=== PATIENT | female | born 1985 | race Caucasian/White ===

== ENCOUNTER → 2022-07-30 | Outpatient (CLI) | payer BC ==
--- NOTE | 2022-07-30 10:34 | MM ---
Reason for Exam: Screening (asymptomatic). Baseline mammogram. Patient History: Menarche at age 12. First Full-Term at age 23. Hysterectomy at age 29. Currently using Estrogen, starting at age 36. Paternal aunt had breast cancer at or over age 50. Paternal grandmother had breast cancer at or over age 50. Maternal grandmother had breast cancer at or over age 50. Mother had breast cancer, age 46. Risk Values: Macie 5 year model risk: 0.7%. NCI Lifetime model risk: 18.6%. Prior Study Comparison: Patient's first Mammogram. Tissue Density: The breast tissue is heterogeneously dense. This may lower the sensitivity of mammography. Findings: Analyzed By CAD. Benign-appearing bilateral axillary lymph nodes. There is oval circumscribed 3.2 cm mass towards the right axilla on MLO view to posterior in location to be seen on cc view. There is irregular focal asymmetry in the middle to posterior depth central aspect left breast on CC view. Overall Assessment: Incomplete: need additional imaging evaluation, BI-RAD 0 Management: Special View Mammogram of the left breast. Diagnostic Breast Ultrasound of the right breast. Targeted ultrasound right breast. Additional mammogram views left breast. Electronically signed and approved by: Rohit Wang M.D.
== END | disposition home or self-care (01) ==
LOC: RADMAMWWP 07:49
PROVIDERS: ATTEND Obstetrics & Gynecology
DX: Z12.31 Encounter for screening mammogram for malignant neoplasm of breast (principal); Z80.3 Family history of malignant neoplasm of breast
CPT/HCPCS: 77067

== ENCOUNTER → 2022-08-02 | Outpatient (CLI) | payer BC ==
--- NOTE | 2022-08-02 07:39 | MM ---
Reason for Exam: Additional evaluation requested from abnormal screening. Last screening mammogram was performed less than 1 month ago. Patient History: Menarche at age 12. First Full-Term at age 23. Hysterectomy at age 29. Currently using Estrogen, starting at age 36. Paternal aunt had breast cancer at or over age 50. Paternal grandmother had breast cancer at or over age 50. Maternal grandmother had breast cancer at or over age 50. Mother had breast cancer, age 46. Risk Values: Macie 5 year model risk: 0.7%. NCI Lifetime model risk: 18.6%. Prior Study Comparison: 07/30/2022 Bilateral MG screening mammo w CAD, [facility]. Tissue Density: Left: The breast tissue is heterogeneously dense. This may lower the sensitivity of mammography. Findings: Analyzed By CAD. Within the left breast at posterior depth 6.5 cm from nipple is a 13 mm asymmetry seen on CC view only slice 25 of 81 on 3-D imaging. Overall Assessment: Incomplete: need additional imaging evaluation, BI-RAD 0 Management: Diagnostic Breast Ultrasound of the left breast. A clinical breast exam by your physician is recommended on an annual basis and results should be correlated with mammographic findings. This exam should not preclude additional follow-up of suspicious palpable abnormalities. Results were given to the patient verbally at the time of exam. Electronically signed and approved by: Jules Robertson DO
--- NOTE | 2022-08-02 08:29 | USB ---
Reason for Exam: Additional evaluation requested from abnormal screening. Patient History: Menarche at age 12. First Full-Term at age 23. Hysterectomy at age 29. Currently using Estrogen, starting at age 36. Paternal aunt had breast cancer at or over age 50. Paternal grandmother had breast cancer at or over age 50. Maternal grandmother had breast cancer at or over age 50. Mother had breast cancer, age 46. Risk Values: Macie 5 year model risk: 0.7%. NCI Lifetime model risk: 18.6%. Prior Study Comparison: 07/30/2022 Bilateral MG screening mammo w CAD, [facility]. Findings: The upper outer quadrant of the right breast, the medial section of the breast of the left breast, the axilla of both breasts and the retroareolar of both breasts were scanned. Evaluation of the breasts including the Right upper outer, axilla and retroareolar and in the left breast medial, retroareolar and axilla. Right breast, * 10:00 5 cm from nipple anechoic cyst measuring 3.1 x 1.3 x 3.1 cm with posterior acoustic enhancement. * Additional anechoic cysts are identified at 9:00 3 cm from nipple, 10:00 2 cm from nipple, 11:00 2 cm from nipple, 12:00 5 cm from nipple. Left breast: * Ill-defined irregular shaped, hypoechoic tissue with irregular borders at 10:00 3 cm from nipple. This area measures roughly 10 x 7 mm in single plane but has a somewhat elongated shape on live scanning. * At 9:00 7 cm from nipple is anechoic cyst measuring up to 7 mm to correlate with finding on mammography. Overall Assessment: Probably benign, BI-RAD 3 Management: Diagnostic Breast Ultrasound of the left breast in 3 months. Somewhat ill-defined tissue is seen in the left breast at 10:00 3 cm from nipple which does not definitively have a correlate on mammography. This may represent fibroglandular tissue. Consider tissue sampling over a three-month ultrasound left breast follow-up as clinically warranted/patient warranted. A clinical breast exam by your physician is recommended on an annual basis and results should be correlated with mammographic findings. This exam should not preclude additional follow-up of suspicious palpable abnormalities. Results were given to the patient verbally at the time of exam. Electronically signed and approved by: Jules Robertson DO
== END | disposition home or self-care (01) ==
LOC: RADMAMWWP 06:59
PROVIDERS: ATTEND Obstetrics & Gynecology
DX: R92.8 Other abnormal and inconclusive findings on diagnostic imaging of breast (principal); Z80.3 Family history of malignant neoplasm of breast
CPT/HCPCS: 77061; 77065

== ENCOUNTER → 2022-11-03 | Outpatient (CLI) | payer BC ==
--- NOTE | 2022-11-08 10:57 | BMR ---
EXAMINATION TYPE: MR breast BILAT wo/w con DATE OF EXAM: 11/03/2022 COMPARISON: Bilateral 3-D screening mammogram July 30, 2022 BI-RADS 0. Diagnostic left breast mamm ogram August 02, 2022 BI-RADS 0. Diagnostic bilateral breast ultrasound workup August 02, 2022 BI-R ADS 3. HISTORY: High risk for breast cancer due to family history, abnormal US and MG. TECHNIQUE: A series of fat and water weighted images in the long and short axis views of both breasts are obtained in conjunction with dynamic contrast MRI with subtraction technique. The patient was i njected with 8 mL intravenous Gadavist gadolinium contrast. Three-dimensional and additional postpr ocessing imaging is created on independent workstation and reviewed during official interpretation of this study. FINDINGS: Breast parenchyma is redemonstrated heterogeneously dense. There are multiple thin-walled c ysts of varying size and shape scattered throughout the bilateral breasts with larger cysts noted thr oughout the right breast which corresponds to the recent ultrasound. Benign-appearing bilateral axill fidelia lymph nodes are present. No concerning axillary adenopathy is seen. Postcontrast images show fair ly symmetric moderate to severe background nodular enhancement making evaluation suboptimal for daniele bob. The right breast shows no areas of abnormal skin thickening. No pathologic enhancement or suspicious enhancing greater than 5 mm masses are identified. The chest wall is intact. Left breast shows no abnormal skin thickening. There is no pathologic enhancement or enhancing masses greater than 5 mm in size. There is focal susceptibility artifact in the anterior to middle depth me dial aspect thought image 668 series 701. Chest wall is intact. IMPRESSION: No convincing MRI evidence for invasive malignancy in either breast. BI-RADS 2 benign findings Recommendation: Patient currently due for repeat left breast ultrasound as is recommended on [facility] ultrasound August 02, 2022. Patient will be due for annual bilateral breast mammogram in July 2023.
== END | disposition home or self-care (01) ==
LOC: RADMRIMAIN 10:13
PROVIDERS: ATTEND Obstetrics & Gynecology
DX: Z91.89 Other specified personal risk factors, not elsewhere classified (principal); Z80.3 Family history of malignant neoplasm of breast
CPT/HCPCS: 77049; A9585

== ENCOUNTER → 2023-02-11 | Outpatient (CLI) | payer BC ==
--- NOTE | 2023-02-11 14:10 | MM ---
Reason for Exam: Clinical finding. Last screening mammogram was performed 7 month(s) ago. Indicated Problems: Lump or thickening of the right side for 9 Day(s). Patient History: Menarche at age 12. First Full-Term at age 23. Hysterectomy at age 29. Estrogen, starting at age 36 for 1 year. Paternal aunt had breast cancer at or over age 50. Paternal grandmother had breast cancer at or over age 50. Maternal grandmother had breast cancer at or over age 50. Mother had breast cancer, age 46. Risk Values: Macie 5 year model risk: 0.8%. NCI Lifetime model risk: 18.6%. Prior Study Comparison: 07/30/2022 Bilateral MG screening mammo w CAD, [facility]. 08/02/2022 Left MG 3D work up w/cad LT, [facility]. 08/02/2022 Bilateral US breast workup limited JUANITA, [facility]. 11/03/2022 Bilateral MR breast bilat wo/w con, [facility]. Tissue Density: The breast tissue is heterogeneously dense. This may lower the sensitivity of mammography. Findings: Analyzed By CAD. No definitive correlate for palpable marker. Dense fibroglandular tissue is present in this area. No new suspicious masses, calcifications or distortions.Right breast: No definitive correlate for palpable marker. Dense fibroglandular tissue is present in this area. Left breast: No new suspicious masses, calcifications or distortions. Overall Assessment: Incomplete: need additional imaging evaluation, BI-RAD 0 Management: Diagnostic Breast Ultrasound of the right breast. Results were given to the patient verbally at the time of exam. Patient should continue monthly self-breast exams. A clinical breast exam by your physician is recommended on an annual basis. This exam should not preclude additional follow-up of suspicious palpable abnormalities. Note on Macie scores and lifetime risk: 1. A Macie score greater than 3% is considered moderate risk. If this is the case, consider specialist referral to assess eligibility for a risk reducing agent. 2. If overall lifetime risk for the development of breast cancer is 20% or higher, the patient may qualify for future screening with alternating mammogram and breast MRI. Electronically signed and approved by: Jules Robertson DO
--- NOTE | 2023-02-11 15:00 | USB ---
Reason for Exam: Clinical finding. Patient History: Menarche at age 12. First Full-Term at age 23. Hysterectomy at age 29. Estrogen, starting at age 36 for 1 year. Paternal aunt had breast cancer at or over age 50. Paternal grandmother had breast cancer at or over age 50. Maternal grandmother had breast cancer at or over age 50. Mother had breast cancer, age 46. Risk Values: Macie 5 year model risk: 0.8%. NCI Lifetime model risk: 18.6%. Prior Study Comparison: 07/30/2022 Bilateral MG screening mammo w [facility], [facility]. 08/02/2022 Left MG 3D work up w/cad , [facility]. Findings: Imaged: Ultrasound imaging of: Bilateral All 4 quadrants, the retroareolar region and axilla. Bilateral simple appearing and slightly, complicated cysts. No suspicious solid masses. The palpable area within the right breast at 10:00 4 cm from nipple correlates with a anechoic cyst with posterior acoustic enhancement measuring 2.0 x 3.1 x 1.7 cm. No evidence for organizing fluid collection or mass.Imaged: Ultrasound imaging of: Bilateral All 4 quadrants, the retroareolar region and axilla. Bilateral simple appearing and slightly, complicated cysts. No suspicious solid masses. The palpable area within the right breast at 10:00 4 cm from nipple correlates with a anechoic cyst with posterior acoustic enhancement measuring 2.0 x 3.1 x 1.7 cm. LEFT breast o'clock 10:00 3 cm from the nipple probable clustered cyst appears stable. No evidence for organizing fluid collection or mass. Overall Assessment: Benign, BI-RAD 2 Management: Screening Mammogram of both breasts in 1 year. A clinical breast exam by your physician is recommended on an annual basis and results should be correlated with mammographic findings. This exam should not preclude additional follow-up of suspicious palpable abnormalities. Results were given to the patient verbally at the time of exam. Electronically signed and approved by: Jules Robertson DO
== END | disposition home or self-care (01) ==
LOC: RADMAMWWP 13:28
PROVIDERS: ATTEND Obstetrics & Gynecology
DX: N63.25 Unspecified lump in the left breast, overlapping quadrants (principal); Z80.3 Family history of malignant neoplasm of breast
CPT/HCPCS: 77062; 77066

== ENCOUNTER → 2023-12-03 | Outpatient (CLI) | payer BC ==
--- NOTE | 2023-12-03 13:50 | BMR ---
EXAM DATE: 12/03/2023 EXAM DESCRIPTION: MRI-Breast Bilat (W/WO Contrast) INDICATION: Palpable masses in both breasts. Strong family history of breast cancer. COMPARISON: Prior breast MR dated 11/03/2022. Correlation is also made with the mammogram dated 07/30/2022 and ultrasound dated 08/02/2022 CONTRAST: 6.1 cc Gadavist contrast material. TECHNIQUE: Multi sequence multiplanar MR imaging of the breasts was obtained. Subsequently, after the uneventful intravenous administration of Gadavist contrast material, 6 dynamic sequences were then obtained. Post processing was performed utilizing a [employer] CAD workstation. FINDINGS: The breasts are composed of heterogeneous fibroglandular tissue. There is moderate background parenchymal enhancement identified. No axillary or internal mammary lymphadenopathy. No focal skin thickening or nipple retraction. The bone marrow signal intensity is unremarkable. No adenopathy in the visualized mediastinum. T2 weighted images demonstrated numerous T2 bright lesions of varying sizes the dominant 1 in the right posterior breast at 3 o'clock position measuring 2.6 x 2.3 cm (401 image 29) in the left breast measuring 1.2 x 1.5 cm at 9 o'clock position posterior depth (401 image 31) likely representing benign fibrocystic changes. Post contrast images demonstrated numerous foci of varying degree of enhancements in both breasts are likely related to benign background parenchyma not significantly changed since prior examination of 11/03/2022. There is no abnormal signal or enhancement in the chest wall or subcutaneous tissue. IMPRESSION: 1. No definite MR evidence of malignancy. 2. Numerous foci of varying degree of enhancements in both breasts, likely related to probably benign background parenchyma. Continued short-term follow-up to establish stability. 3. No axillary or intramammary lymphadenopathy. Final assessment: BI-RADS category 3: Probably benign: Short-term follow-up is recommended. [facility]
== END | disposition home or self-care (01) ==
LOC: RADMRIMAIN 07:58
PROVIDERS: ATTEND Obstetrics & Gynecology
DX: N63.10 Unspecified lump in the right breast, unspecified quadrant (principal); N63.20 Unspecified lump in the left breast, unspecified quadrant; Z80.3 Family history of malignant neoplasm of breast; Z91.89 Other specified personal risk factors, not elsewhere classified
CPT/HCPCS: 77049; A9585

== ENCOUNTER → 2024-05-05 | Outpatient (CLI) | payer BC ==
--- NOTE | 2024-05-05 12:18 | CA ---
Stress Echo Report Cammie Puri Age: 38 Gender: F : 1985 Exam Date: 05/05/2024 11:19 Exam Location: [facility] Ht (in): 68 Wt (lb): 180 Ordering Physician: Mirna Mora DO Referring Physician: Mirna Mora DO Network Engineering Advisor: Saloni Mayorga RDCS Technologist Procedure CPT: Indication: R00.2 PALPITATIONS R06.02 SHORTNESS OF BREATH ICD-9 Codes: Rhythm: Patient History: DIFFICULTY IN BREATHING, PALPITATIONS, FAMILY HX OF HEART DISEASE Cardiac Medications: Medications in past 24 hours: Contrast: N/A Stress Results Protocol: Buster Total dose(mL): Exercise Duration (min:sec): 9:[address] Depression (mm): Angina Score: Dinh Score: METS: 10.5 Resting HR: 93 Resting BP: 137 / 75 Peak HR: 177 Peak BP: 195 / 81 Max Predicted HR: 182 97 % Max Predicted HR Target HR: 155 Double Product: [id number] Stress Summary: BP Response: Reason for Termination: MAX EXERTION/TARGET HR Cardiac Symptoms: NO SYMPTOMS ECG Analysis Resting ECG: Normal sinus rhythm normal axis normal intervals Stress ECG: Patient exercised on Buster protocol for 9 minutes achieving 10 mets 85% of predicted maximal heart rate without chest pain or diagnostic ST segment depression Arrhythmia: Echo Analysis Resting Echo: Normal left ventricle a size wall motion systolic function Peak Echo Analysis: Normal hyperdynamic response MEASUREMENTS (Male/Female) Normal Values CONCLUSIONS Good exercise tolerance Negative stress test by EKG criteria Negative stress echo Dr. Zack Baxter MD (Electronically Signed) Final Date: 05 May 2024 12:17
== END | disposition home or self-care (01) ==
LOC: RADNMMAIN 09:49
PROVIDERS: ATTEND Family Medicine
DX: R00.2 Palpitations (principal); R06.02 Shortness of breath
CPT/HCPCS: 93351